=== PATIENT | female | born 1985 ===

== ENCOUNTER 2017-09-16 15:27 | Emergency (ER) | payer OTHER ==
[2017-09-16 15:53] VITALS: BMI 25.2
[2017-09-16 19:08] LABS: HEMATOCRIT 40.8 % (34.0-47.0); MEAN CELL VOLUME 95.4 fl (81.0-99.0); MEAN CORPUSCULAR HEMOGLOBIN 31.8 pg (27.0-31.0); MEAN CORPUSCULAR HGB CONC 33.4 g/dL (33.0-37.0); RED CELL DISTRIBUTION WIDTH 13.4 % (11.5-14.5); WHITE BLOOD COUNT 9.2 K/uL (4.8-10.8)
--- NOTE | 2017-09-16 19:33 | OBHP ---
Datetime: 09/16/2017 16:00 IP Adm Impression: , intrauterine ; No Active Labor IP Admit Plan: Observation/Evaluation Admit Comment, IP Provider: CHIEF COMPLAINT: Fall and decrease FM HPI: 31 yo at 31.0 wks GA with EDC by lmp: 02/12/2017; confirmed with US +: FM, -: ROM, VB , CTX Ms. Philip Cardona states that prior to arriving to the [facility], she was walking in [employer] slipped and fell forward, directly impacting her abdomen and chin. She presented with chipped te eth of frontal maxillary x3 and shares that 4 teeth are loose but in place 2/2 to metal bridge to inn er surface. She denies LOC last U/s: approx 1 month ago last visit: approx 1 month ago GBS? (pending records) PNC: Dr. Mendoza PAST OB HX: @ 40 week in 2014 PAST SHOP LEAD HX: STIs: denies, PAP: july PMHX: none PAST SX HX: breast augmentation 2009 SOCIAL HX: Denies: smoking, alcohol, illicit drugs MEDICATION: PNV, Ca, Fe, omega 3, Folic acid ALLERGIES: NKDA VITALS: 112/72 80 PE: General: pleasant HEENT: normocephalic, PERRLA; AAOx3 Heart: no murmurs, regular rate and rhythm, S1, S2 normal. Lungs: clear to auscultation bilaterally, no wheezing Abdomen: nontender, gravid Lower extremities: negative for pitting edema Mandibular frontal teeth chipped x 3, loose for first 4. Metal bridge to fronal maxillary teeth. S mall 5 mm laceration of inner lip of mandible. No active bleed. 1 cm abrasion of epidermis of chin on lower aspect. MONITOR: Variablity: moderate: 6-25 bpm ACC: 15x15 DECC: none FHR: 140 ASSESSMENT: 31 yo IUP at 31 wks observed for maternal - wellness Plan: CBC TS Observation for [address] Autumn Torrez MD PGY1 Addendum: I saw and examined patient. Plan for continued observation. Agree with above plan. Both MWB/FWB reassuring at this time. [place] Pelvic Type - PN: Adequate Extremities - PN: Normal Abdomen - PN: Normal Back - PN: Normal Breast - PN: Not Done Lungs - PN: Normal Heart - PN: Normal Thyroid - PN: Normal Neurologic - PN: Normal HEENT - PN: Normal General - PN: Normal FHR - Baseline A Provider: 140 EGA AdmitDate IP: 30.5 Vital Signs Provider: Reviewed; Within Normal Limits IP Chief Complaint: Trauma/Fall NICHD Variability Prov Fetus A: Moderate 6-25bpm NICHD Accel Fetus A IP Provider: 15X15 FHR Category Provider Fetus A: Category I NICHD Decel Fetus A IP Provider: None Genitourinary Exam: Normal DTRs - PN: Not Done
[2017-09-17 03:10] VITALS: BP 103/66; PULSE 88; RESP 16; TEMP 98.8; O2SAT 100
== END 2017-09-16 21:10 | disposition home or self-care (01) ==
LOC: H.EROB2 15:27 → H.EROB 15:52 → H.EROB2 21:10
DX: O47.03 False labor before 37 completed weeks of gestation, third trimester (principal); Z3A.31 31 weeks gestation of pregnancy; S02.5XXA Fracture of tooth (traumatic), initial encounter for closed fracture; W01.10XA Fall on same level from slipping, tripping and stumbling with subsequent striking against unspecified object, initial encounter; Y92.511 Restaurant or cafe as the place of occurrence of the external cause

== ENCOUNTER 2017-09-16 21:15 | Emergency (ER) | payer OTHER ==
[2017-09-16 21:16] VITALS: BMI 25.2
[2017-09-16 21:22] VITALS: BP 105/68; PULSE 95; RESP 16; TEMP 98.8; O2SAT 99
--- NOTE | 2017-09-16 21:51 | ED PDOC ---
HPI: General Adult Time Seen by Provider: 09/16/17 21:23 Chief Complaint (Nursing): Trauma Chief Complaint (Provider): Trauma Fall History Per: Patient, Family () History/Exam Limitations: no limitations Current Symptoms Are (Timing): Still Present Additional Complaint(s): 31 y/o female presents to the emergency department accompanied by after she fell on a slippery floor while being walked over to a table at a restaurant called [employer] prior to arrival. Patient is and states she fell over her belly and broke her 4 front teeth. Patient was cleared by OB upstairs in this facility prior to arriving into the emergency room for evaluation. Denies loss of consciousness, head injury, headache, nausea, or vomiting. PMD: Dr. Jennyfer Mendoza MD Past Medical History Reviewed: Historical Data, Nursing Documentation, Vital Signs Vital Signs: Last Vital Signs Temp 98.8 F 09/16/17 21:18 Pulse 95 H 09/16/17 21:18 Resp 16 09/16/17 21:18 BP 105/68 09/16/17 21:18 Pulse Ox 99 09/16/17 21:18 - Medical History PMH: No Chronic Diseases - Family History Family History: States: Unknown Family Hx - Living Arrangements Living Arrangements: With Family - Social History Current smoker - smoking cessation education provided: No Alcohol: None Drugs: Denies - Home Medications Home Medications: Ambulatory Orders Medication Instructions Recorded Ca/Cholecalciferol/Fe/Folic 1 1 tab PO DAILY 09/16/15 [Basic's Vitamins] Docusate Sodium/Sennosides A 2 tab PO HS PRN #20 tab 09/19/15 [Senokot S 50 MG-8.6 MG] Ferrous Sulfate 325 mg PO BID #60 tab 09/19/15 - Allergies Allergies/Adverse Reactions: Allergies Allergy/AdvReac Type Severity Reaction Status Date / Time No Known Allergies Allergy Verified 09/16/17 21:18 Review of Systems ROS Statement: Except As Marked, All Systems Reviewed And Found Negative (As per HPI, otherwise negative) Constitutional: Positive for: Other (No loss of consciousness or head injury) ENT: Positive for: Other (Teeth injury status post fall) Gastrointestinal: Negative for: Nausea, Vomiting Musculoskeletal: Positive for: Other (Knee bruising and pain bilaterally) Neurological: Negative for: Headache, Dizziness Physical Exam - Reviewed Nursing Documentation Reviewed: Yes Vital Signs Reviewed: Yes - Physical Exam Appears: Positive for: Non-toxic, No Acute Distress Head Exam: Positive for: ATRAUMATIC, NORMAL INSPECTION (Remaining of the face is normal. ), NORMOCEPHALIC Skin: Positive for: Normal Color, Warm, Dry ENT: Positive for: Normal ENT Inspection (Abrasion to the inner lower lip noted. Able to break tongue depressor with jaw. Front four incisors injury noted. ). Negative for: Other (No TMJ injury. No tongue injury. No active bleeding. ) Extremity: Positive for: Normal ROM, Other (Abrasions and ecchymosis noted to the knees bilaterally) Neurologic/Psych: Positive for: Alert, route rider II-XII (Intact), Oriented (x3), Cerebellar Tests (Normal). Negative for: Facial Droop - ECG O2 Sat by Pulse Oximetry: 99 (RA) Pulse Ox Interpretation: Normal Medical Decision Making Medical Decision Making: Time: 2139 Initial impression: Fall Injury Initial plan: --Cleared by OB. --Evaluated by me and clear for discharge. Scribe Attestation: Documented by Judy Harrison, acting as a scribe for Mirlande Joaquin PA-C Provider Scribe Attestation: All medical record entries made by the Scribe were at my direction and personally dictated by me. I have reviewed the chart and agree that the record accurately reflects my personal performance of the history, physical exam, medical decision making, and the department course for this patient. I have also personally directed, reviewed, and agree with the discharge instructions and disposition. Disposition - Clinical Impression Clinical Impression: Fall with injury, Mouth injury, Dental injury - Disposition Condition: STABLE Additional Instructions: You will need to be seen by a dentist as soon as possible. Instructions: Acute Dental Trauma (ED)
== END 2017-09-16 22:00 | disposition home or self-care (01) ==
LOC: H.ER 21:15
DX: S02.5XXA Fracture of tooth (traumatic), initial encounter for closed fracture (principal); W22.8XXA Striking against or struck by other objects, initial encounter; Y92.511 Restaurant or cafe as the place of occurrence of the external cause; Z33.1 Pregnant state, incidental

== ENCOUNTER 2017-11-21 06:14 | Emergency (ER) | payer OTHER ==
[2017-11-21 06:32] VITALS: BMI 24.5
[2017-11-21] MEDS ORDERED: Lactated Ringer's 1,000 ML IV SCH (06:40)
[2017-11-21] MEDS ORDERED: Oxytocin 30 units/LR 500ML 30 U/500 ML BAG IV ONE (06:58)
[2017-11-21 07:04] VITALS: BP 105/73; PULSE 77; RESP 16; TEMP 98.3; O2SAT 100
[2017-11-21 07:14] LABS: BASO % 0.4 % (0.0-2.0); EOS # 0.1 K/uL (0.0-0.7); EOS % 1.6 % (0.0-4.0); HEMOGLOBIN 12.4 g/dL (12.0-16.0); LYMPH # 2.3 K/uL (1.0-4.3); LYMPH % 25.8 % (20.0-40.0); MEAN CELL VOLUME 91.6 fl (81.0-99.0); MEAN CORPUSCULAR HEMOGLOBIN 31.3 pg (27.0-31.0); MEAN CORPUSCULAR HGB CONC 34.1 g/dL (33.0-37.0); MEAN PLATELET VOLUME 10.9 fl (7.2-11.7); MONO # 0.5 K/uL (0.0-0.8); MONO % 5.6 % (0.0-10.0); NEUT % 66.6 % (50.0-75.0); NRBC % 0.1 % (0.0-0.0); RBC 3.98 Mil/uL (3.80-5.20); RED CELL DISTRIBUTION WIDTH 12.8 % (11.5-14.5); WHITE BLOOD COUNT 9.1 K/uL (4.8-10.8)
== END 2017-11-21 07:30 | disposition home or self-care (01) ==
LOC: H.EROB2 06:14 → H.L&D 06:49 → UNDOADMIN 06:49 → H.EROB2 07:30
DX: O32.1XX1 Maternal care for breech presentation, fetus 1 (principal); Z3A.39 39 weeks gestation of pregnancy

== ENCOUNTER 2017-11-28 07:19 | Inpatient (IN) | payer OTHER ==
[2017-11-28 07:41] VITALS: BMI 25.0
[2017-11-28] MEDS ORDERED: Lactated Ringer's 1,000 ML IV SCH (08:15)
[2017-11-28 08:22] LABS: BASO % 0.4 % (0.0-2.0); EOS # 0.1 K/uL (0.0-0.7); EOS % 1.4 % (0.0-4.0); HEMOGLOBIN 12.7 g/dL (12.0-16.0); LYMPH # 2.7 K/uL (1.0-4.3); LYMPH % 28.8 % (20.0-40.0); MEAN CELL VOLUME 92.2 fl (81.0-99.0); MEAN CORPUSCULAR HEMOGLOBIN 31.5 pg (27.0-31.0); MEAN CORPUSCULAR HGB CONC 34.1 g/dL (33.0-37.0); MEAN PLATELET VOLUME 11.2 fl (7.2-11.7); MONO # 0.5 K/uL (0.0-0.8); NEUT % 64.4 % (50.0-75.0); NRBC % 0.1 % (0.0-0.0); RBC 4.02 Mil/uL (3.80-5.20); RED CELL DISTRIBUTION WIDTH 13.2 % (11.5-14.5); WHITE BLOOD COUNT 9.2 K/uL (4.8-10.8)
--- NOTE | 2017-11-28 11:14 | OBHP ---
Datetime: 11/28/2017 08:05 IP Adm Impression: Term, intrauterine IP Admit Plan: Admit to unit; Initiate labor induction protocol Admit Comment, IP Provider: 32 yo with IUP at 40+ weeks,Reports good movement, denies loss of fluid. Has had some vaginal spotting this morning and states she has been feeling irregularly timed contractions. No complaints today. care: Dr. Javier Mendoza records reviewed, uncomplicated GBS negative, HIV neg, RPR neg, HbsAg neg, rubella immune , ABO O pos, antibody neg. Med hx: no medical problems OBhx: 1 NVD, full term Surg hx: cosmetic, breast implants 2009 Family hx: noncontributory Social hx: denies tobacco, alcohol, drug use Allergies: nkda Meds: PNV, folic acid ROS: no pertinent positives in review PE: Gen: alert, awake, NAD CV: S1S2,RRR Resp: clear to auscultation bilaterally Abd: gravid, nontender Ext: no edema, no tenderness to palpation Bedside sono: vertex presentation Assessment: 32 yo with IUP at 40+ weeks Plan: Admit to unit adequate pelvis vertex presentation anticipate normal vaginal delivery Estimated weight 7-1/2 pounds -[place] [id number] The patient was seen with the resident I agree with the note Extremities - PN: Normal Abdomen - PN: Normal Back - PN: Normal Breast - PN: Not Done Lungs - PN: Normal Heart - PN: Normal Thyroid - PN: Not Done Neurologic - PN: Normal HEENT - PN: Normal General - PN: Normal FHR - Baseline A Provider: 120 Comments, ACOG Physical Exam: bedside sono: vertex presentation EGA AdmitDate IP: 40.1 Vital Signs Provider: Reviewed; Within Normal Limits IP Chief Complaint: Scheduled induction of labor NICHD Variability Prov Fetus A: Moderate 6-25bpm NICHD Accel Fetus A IP Provider: 15X15 FHR Category Provider Fetus A: Category I Genitourinary Exam: Normal DTRs - PN: Not Done
[2017-11-28] MEDS ORDERED: Oxytocin 30 UNITS in Sodium Chloride 0.9% 500 ML IV SCH (12:15)
[2017-11-28] MEDS: Lactated Ringer's 1,000 ML IV SCH ×2 (13:00→14:00)
[2017-11-28] MEDS ORDERED: Fentanyl/Bupivacaine HCl 250 ML EPI ONE (13:51)
[2017-11-28] MEDS ORDERED: Bupivacaine HCl 0.25% PF (10 ml) Inj ONE (13:54)
[2017-11-28] MEDS ORDERED: Lidocaine 1% Inj (20ml) ONE (13:58)
[2017-11-28] MEDS ORDERED: Oxycodone/Acetaminophen 5/325 mg Tab PO PRN ×4 (14:55→16:53)
--- NOTE | 2017-11-28 14:55 | OBADHP ---
Datetime: 11/28/2017 08:05 Admit Comment, IP Provider: 32 yo with IUP at 40+ weeks,Reports good movement, denies loss of fluid. Has had some vaginal spotting this morning and states she has been feeling irregularly timed contractions. No complaints today. care: Dr. Javier Mendoza records reviewed, uncomplicated GBS negative, HIV neg, RPR neg, HbsAg neg, rubella immune , ABO O pos, antibody neg. Med hx: no medical problems OBhx: 1 NVD, full term Surg hx: cosmetic, breast implants 2009 Family hx: noncontributory Social hx: denies tobacco, alcohol, drug use Allergies: nkda Meds: PNV, folic acid ROS: no pertinent positives in review PE: Gen: alert, awake, NAD CV: S1S2,RRR Resp: clear to auscultation bilaterally Abd: gravid, nontender Ext: no edema, no tenderness to palpation Bedside sono: vertex presentation Assessment: 32 yo with IUP at 40+ weeks Plan: Admit to unit adequate pelvis vertex presentation anticipate normal vaginal delivery [facility] The [facility] was seen with the resident I agree with the note Extremities - PN: Normal Abdomen - PN: Normal Back - PN: Normal Breast - PN: Not Done Lungs - PN: Normal Heart - PN: Normal Thyroid - PN: Not Done Neurologic - PN: Normal HEENT - PN: Normal General - PN: Normal FHR - Baseline A Provider: 120 Comments, ACOG Physical Exam: bedside sono: vertex presentation Pool Provider: Negative Vital Signs Provider: Reviewed; Within Normal Limits IP Chief Complaint: Scheduled induction of labor NICHD Variability Prov Fetus A: Moderate 6-25bpm NICHD Accel Fetus A IP Provider: 15X15 FHR Category Provider Fetus A: Category I Dilatation, Provider: 4 Effacement, Provider: 90 Station, Provider: -1 Genitourinary Exam: Normal DTRs - PN: Not Done EGA AdmitDate IP: 40.1 IP Adm Impression: Term, intrauterine IP Admit Plan: Admit to unit; Initiate labor induction protocol Datetime: 09/16/2017 16:00 Pelvic Type - PN: Adequate NICHD Decel Fetus A IP Provider: None
--- NOTE | 2017-11-28 14:55 | OBDS ---
MATERNAL INFORMATION Provider Comments: Delivered live baby boy at 2030 1 PM the baby was bulb suctioned on the perineum and transferred to the maternal chest. The cord was clamped and cut 3 vessels noted cord blood was ob tained and sent to the lab. The estimated blood loss was 100 mL. The placenta was delivered at 2:37 P M intact. There was a first-degree laceration which was repaired with 2-0 rapide. The mother tolerate d the procedure well and went to the [facility] baby [facility] weighing 3315 g with Apgars of 9 and 9 LABOR SUMMARY EDC: 11/27/2017 00:00 No. Babies in Womb: 1 LABOR INFORMATION Group B Beta Strep: Negative MEMBRANES Membranes Rupture Method: Artificial Amniotic Fluid Color: Clear Amniotic Fluid Amount: Small IDENTIFICATION/MEDS BABY A ID Band Number: [id number]
[2017-11-29 05:41] LABS: HEMOGLOBIN 10.8 g/dL (12.0-16.0); MEAN CELL VOLUME 92.6 fl (81.0-99.0); MEAN CORPUSCULAR HEMOGLOBIN 30.4 pg (27.0-31.0); MEAN CORPUSCULAR HGB CONC 32.9 g/dL (33.0-37.0); RBC 3.54 Mil/uL (3.80-5.20); RED CELL DISTRIBUTION WIDTH 12.7 % (11.5-14.5)
--- NOTE | 2017-11-30 09:33 | OBPPN ---
Datetime: 11/30/2017 09:29 PP Pain Prov: Within normal limits PP Nausea Prov: Denies PP Flatus Prov: Yes PP Breasts Prov: Normal PP Heart Prov: Normal PP Lungs Prov: Normal PP Abdomen/Uterus Prov: Normal PP Lochia Prov: Normal PP Vulva/Perineum Prov: Normal PP CVA Tenderness Prov: Normal PP Extremities Prov: Normal PP Impression Prov: Normal progression PP Plan Prov: Discharge PP Progress Note Prov: Patient denies CP, no SOB, no N/V, tolerating PO diet, ambulating/voiding wel l, mild lochia, abdominal pain tolerable with meds A/P 1. Discharge pt home 2. Discharge instructions reviewed IP PP Procedures: None Vital Signs Provider PP: Reviewed; Within Normal Limits
--- NOTE | 2017-11-30 09:33 | OBDCSUM ---
Datetime: 11/30/2017 09:32 Discharged to, Provider: Home Follow up at, Provider: OB Disch Instr Activity: Normal activity Disch Instr Diet: Regular Discharge Instructions, Provider: Routine instructions given Discharge Diagnosis, Provider: Term Delivered Discharge Time: 11/30/2017 09:32 Follow up in weeks, Provider: 6 wks Disch Referrals: None Contraception discussed, Prov: Yes
[2017-12-01 11:39] VITALS: BP 87/59; PULSE 87; RESP 20; TEMP 97.7
== END 2017-11-30 12:45 | disposition home or self-care (01) | DRG 775 ==
LOC: H.EROB2 07:19 → H.L&D 07:55 → H.OB/GYN 16:40
PROVIDERS: ADMIT Obstetrics & Gynecology Gynecology; ATTEND Obstetrics & Gynecology Gynecology
PROC: 10E0XZZ Delivery of Products of Conception, External Approach (ICD-10-PCS; principal; 2017-11-28)
PROC: 4A1HXCZ Monitoring of Products of Conception, Cardiac Rate, External Approach (ICD-10-PCS; 2017-11-28)
PROC: 0HQ9XZZ Repair Perineum Skin, External Approach (ICD-10-PCS; 2017-11-28)
DX: O48.0 Post-term pregnancy (principal); O70.0 First degree perineal laceration during delivery; Z37.0 Single live birth; Z3A.40 40 weeks gestation of pregnancy; Z98.82 Breast implant status